=== PATIENT | male | born 1990 | race Caucasian/White ===

== ENCOUNTER 2017-11-03 17:21 | Inpatient (IN) | payer OTHER ==
[~2017-11-03] VITALS: Ht 185.4 cm; Wt 70.4 kg
[2017-11-03 18:47] LABS: ABSOLUTE BASOPHIL COUNT 0.1 /CUMM (0.0-0.2); ABSOLUTE EOSINOPHIL COUNT 0 /CUMM (0.0-0.7); ABSOLUTE GRANULOCYTE CT 7.8 /CUMM (1.4-6.5); ABSOLUTE LYMPH COUNT 1.8 /CUMM (1.2-3.4); ABSOLUTE MONOCYTE COUNT 0.8 /CUMM (0.10-0.60); BASOPHIL % 0.8 % (0.0-2.0); EOSINOPHIL % 0.3 % (0-5); GRANULOCYTE % 74.2 % (42.2-75.2); HEMATOCRIT 40.9 % (42-52); MEAN CORPUSCULAR HGB 32.8 PG (27.0-31.0); MEAN CORPUSCULAR HGB CONC 33.8 G/DL (33.0-37.0); MEAN CORPUSCULAR VOLUME 96.8 FL (80.0-94.0); MEAN PLATELET VOLUME 8.7 FL (7.4-10.4); PLATELET COUNT 151 /CUMM (130-400); RBC DISTRIBUTION WIDTH 13.4 % (11.5-14.5); RED BLOOD CELL CT 4.23 /CUMM (4.70-6.10); WHITE BLOOD CELL COUNT 10.5 /CUMM (4.8-10.8)
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
--- NOTE | 2017-11-03 20:09 | ED PSYCHIATRIC COMPLAINT ---
History of Present Illness General Chief Complaint: Psychiatric Related Complaint Stated Complaint: ON PEC, BIPOLAR, AGGRESSIVE,ERRADIC BEHAVIOR Source: patient Exam Limitations: no limitations Vital Signs & Intake/Output Vital Signs & Intake/Output Vital Signs Date Time Temp Pulse Resp B/P B/P Pulse O2 O2 Flow FiO2 Mean Ox Delivery Rate 11/03 2249 98.3 69 149/88 11/03 2102 97.5 100 16 130/83 99 11/03 1917 Room Air 11/03 1732 98.3 87 16 145/80 98 Room Air ED Intake and Output 11/04 0000 11/03 1200 Intake Total 200 Output Total Balance 200 Intake, Oral 200 Patient 155 lb Weight Allergies Coded Allergies: NO KNOWN ALLERGIES (08/17/12) Reconcile Medications No Known Home Medications Triage Note: BIBA FROM HOME ON PEC. PT WITH HISTORY OF BIPOLAR DISORDER. HAS NOT BEEN ON ANY MEDS FOR PAST TWO YEARS (UNCLEAR TO WHY). KNOWN TO [facility]. PARENTS CALLED CRISIS LINE TODAY DUE TO PT EXHIBITING DECLINE IN FUNCTIONING PAST WEEK WITH ERRADIC BEHAVIOR AND OUTBURSTS OF ANGER TOWARD FAMILY. PT DENIES SI OR HI. UPON ARRIVAL PT DOWNPLAYING SITUATION. CALM AND COOPERATIVE WITH ADMISSION PROCESS TO ED. Triage Nurses Notes Reviewed? yes Onset: Gradual Duration: week(s): Timing: no prior history Severity: moderate HPI: 27 yo gentleman, h/o bipolar, on police PEER presents after an argument with mother. "She is terrible at cleaning... she just sits there and judges me...." He denies SI/HI/hallucinations. He denies illicit drug use. He states that he is otherwise well. Past History Travel History Traveled to [place] past 21 day No Medical History Any Pertinent Medical History? 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 No Review of Systems Review of Systems Constitutional: Reports: no symptoms. EENTM: Reports: no symptoms. Respiratory: Reports: no symptoms. Cardiovascular: Reports: no symptoms. GI: Reports: no symptoms. Genitourinary: Reports: no symptoms. Musculoskeletal: Reports: no symptoms. Skin: Reports: no symptoms. Neurological/Psychological: Reports: no symptoms. Hematologic/Endocrine: Reports: no symptoms. Immunologic/Allergic: Reports: no symptoms. All Other Systems: Reviewed and Negative Physical Exam Physical Exam General Appearance: well developed/nourished, mild distress Head: atraumatic Eyes: Bilateral: PERRL, EOMI. Ears, Nose, Throat: normal pharynx, normal ENT inspection, hearing grossly normal Neck: normal inspection, supple Respiratory: normal breath sounds Cardiovascular: regular rate/rhythm Gastrointestinal: soft, non-tender Extremities: normal range of motion Neurological/Psychiatric: no motor/sensory deficits, anxious, flat, tangential speech with slight aggression Appearance/Memory/Insight: impaired insight Behavoir/Eye Contact/Speech: cooperative Thoughts/Hallucinations: no apparent hallucination Skin: intact, normal color, warm/dry SAD PERSONS Done? patient not suicidal Progress Differential Diagnosis: bipolar vs other. Plan of Care: Orders Procedure Date/time Status Regular Diet 11/04 B Active Vital Signs 11/04 2203 Active Inpt Psych Teach/Educate 11/04 2203 Active Nutritional Intake, Monitor 11/04 2203 Active Inpt Psych Auricular Acupunctu 11/04 2203 Active Admit to inpatient psych 11/03 2046 Active Intake & Output 11/03 1917 Complete Continuous Observation Monitor 11/03 191 Complete ED CRISIS PSYCH CONSULT 11/03 191 Active URINE DRUG SCREEN FOR ER ONLY 11/03 1826 Complete ETHANOL 11/03 182 Complete COMPREHENSIVE METABOLIC PANEL 11/03 182 Complete CBC WITHOUT DIFFERENTIAL 11/03 182 Complete Current Medications Sig/Dayanara Start time Last Medication Dose Stop Time Status Admin Nicotine 14 MG DAILY 11/04 0900 AC (Nicotine Cq) Acetaminophen 650 MG Q4P PRN 11/03 2222 AC (Tylenol) Nicotine 2 MG Q2P PRN 11/03 2222 AC (Nicotine) Quetiapine Fumarate 50 MG Q6P PRN 11/03 2222 AC (SEROquel) Laboratory Tests 11/03/17 1843: Urine Opiates Screen < 100, Methadone Screen < 40, Barbiturate Screen < 60, Ur Phencyclidine Scrn < 6.00, Amphetamines Screen < 100, U Benzodiazepines Scrn < 85, Urine Cocaine Screen < 50, Urine Cannabis Screen > 80.00 H 11/03/17 1833: Anion Gap 7, Estimated GFR > 60, BUN/Creatinine Ratio 25.0, Glucose 82, Calcium 9.2, Total Bilirubin 0.5, AST 67 H, ALT 49, Alkaline Phosphatase 42, Total Protein 6.2 L, Albumin 4.0, Globulin 2.2, Albumin/Globulin Ratio 1.8, CBC w Diff NO MAN DIFF REQ, RBC 4.23 L, MCV 96.8 H, MCH 32.8 H, MCHC 33.8, RDW 13.4 , MPV 8.7, Gran % 74.2, Lymphocytes % 17.1 L, Monocytes % 7.6, Eosinophils % 0.3, Basophils % 0.8, Absolute Granulocytes 7.8 H, Absolute Lymphocytes 1.8, Absolute Monocytes 0.8 H, Absolute Eosinophils 0, Absolute Basophils 0.1, Serum Alcohol < 10.0 Departure Departure Disposition: STILL A PATIENT Condition: Stable Clinical Impression Primary Impression: Bipolar disorder Referrals: Patient Has No Primary Care Dr (PCP/Family) Departure Forms: Customer Survey General Discharge Information Prescriptions: Current Visit Scripts No Known Home Medications Psych Admission Note Psychiatric Admission: I have seen and evaluated SCOTTVICKYRene Steward. I have also reviewed all the pertinent lab results and diagnostic results. SCOTTCAROLINE Bin will be admitted to our inpatient Psychiatric unit for treatment and care.
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
[2017-11-03 22:49] VITALS: BP 149/88
[2017-11-04 07:53] VITALS: BP 130/59
--- NOTE | 2017-11-04 09:27 | Cons- Medical ---
General Information and HPI Consulting Request Date of Consult: 11/04/17 Requested By: Jason Rhodes MD Reason for Consult: Medical H&P Source of Information: patient History of Present Illness: 27-year-old male no significant past medical history is here with psychotic symptoms and bipolar symptoms. Patient denies chest pain denies shortness of breath, fever, cough. He says he is in good health. He is an active smoker. Allergies/Medications Allergies: Coded Allergies: NO KNOWN ALLERGIES (08/17/12) Home Med List: No Known Home Medications Current Medications: Current Medications Sig/Dayanara Start time Last Medication Dose Route Stop Time Status Admin Acetaminophen 650 MG Q4P PRN 11/03 2223 AC PO Al Hydroxide/Mg 30 ML Q4-6 PRN PRN 11/04 1015 UNVr Hydroxide PO Benztropine Mesylate 1 MG Q6P PRN 11/04 1015 AC PO Benztropine Mesylate 1 MG Q6P PRN 11/04 1015 AC IM Haloperidol 5 MG Q6P PRN 11/04 1015 AC PO Haloperidol 5 MG Q6P PRN 11/04 1015 AC IM Lorazepam 2 MG Q6P PRN 11/04 1015 AC IM Magnesium Hydroxide 30 ML AT BEDTIME PRN 11/04 1015 UNVr PO Nicotine 14 MG DAILY 11/04 0900 AC TOP Nicotine 2 MG Q2P PRN 11/03 2223 AC 11/04 PO 1042 Quetiapine Fumarate 50 MG Q6P PRN 11/03 2223 AC PO Review of Systems Review of Systems Constitutional: Denies: no symptoms, chills, diaphoresis, fever. Cardiovascular: Denies: no symptoms, chest pain, edema, orthopena. Respiratory: Denies: no symptoms, cough, hemoptysis. GI: Denies: no symptoms, abdominal pain, bloating, constipation. Genitourinary: Denies: no symptoms, dysuria, frequency. 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 Home ETOH Use: denies use Illicit Drug Use: denies illicit drug use Other Social History: Pt says he was employed at [employer] and recently switched to another job. He is an active smoker and smokes every day. His only surgical history is treatment for broken jaw. He had a DUI in 2012 and has not had an alcoholic drink since then. His family history is positive for his mother having hypertension. Employment History Employment: Unemployed Profession/Employer: He was working at [employer] for 2years Exam & Diagnostic Data Last 24 Hrs of Vital Signs/I&O Vital Signs Date Time Temp Pulse Resp B/P B/P Pulse O2 O2 Flow FiO2 Mean Ox Delivery Rate 11/04 0753 97.3 53 130/59 11/03 2249 98.3 69 149/88 11/03 2102 97.5 100 16 130/83 99 11/03 1917 Room Air 11/03 1732 98.3 87 16 145/80 98 Room Air Intake & Output 11/04 1600 11/04 0800 11/04 0000 Intake Total 200 Output Total Balance 200 Intake, Oral 200 Patient 70.42 kg Weight Physical Exam General Appearance: well developed/nourished, no apparent distress, alert, awake Head: atraumatic, normal appearance Eyes: Bilateral: normal appearance, PERRL, EOMI. Ears, Nose, Throat: normal pharynx, normal ENT inspection, hearing grossly normal Neck: normal inspection, supple, full range of motion Respiratory: normal breath sounds, chest non-tender, no respiratory distress, quiet respiration Cardiovascular: regular rate/rhythm Gastrointestinal: normal bowel sounds, soft, non-tender, no organomegaly Back: normal inspection, normal range of motion Extremities: normal inspection, normal capillary refill, normal range of motion, no edema Neurologic/Psych: no motor/sensory deficits, awake, alert, oriented x 3, normal gait Other Physical Findings: She does alert and oriented 3, cranial nerves III through XII are intact, motor and sensory are intact. Reflexes are 2+ and symmetric. No cerebellar signs, gait is normal. Last 24 Hrs of Labs/Sinan: Laboratory Tests 11/03/17 1843: Urine Opiates Screen < 100, Methadone Screen < 40, Barbiturate Screen < 60, Ur Phencyclidine Scrn < 6.00, Amphetamines Screen < 100, U Benzodiazepines Scrn < 85, Urine Cocaine Screen < 50, Urine Cannabis Screen > 80.00 H 11/03/17 1833: Anion Gap 7, Estimated GFR > 60, BUN/Creatinine Ratio 25.0, Glucose 82, Calcium 9.2, Total Bilirubin 0.5, AST 67 H, ALT 49, Alkaline Phosphatase 42, Total Protein 6.2 L, Albumin 4.0, Globulin 2.2, Albumin/Globulin Ratio 1.8, CBC w Diff NO MAN DIFF REQ, RBC 4.23 L, MCV 96.8 H, MCH 32.8 H, MCHC 33.8, RDW 13.4 , MPV 8.7, Gran % 74.2, Lymphocytes % 17.1 L, Monocytes % 7.6, Eosinophils % 0.3, Basophils % 0.8, Absolute Granulocytes 7.8 H, Absolute Lymphocytes 1.8, Absolute Monocytes 0.8 H, Absolute Eosinophils 0, Absolute Basophils 0.1, Serum Alcohol < 10.0 Assessment/Plan Assessment/Plan 27-year-old male active smoker here with active bipolar disorder with manic symptoms. Treatment as per psychiatry. Patient has a history of elevated TSH in the past and will check that. Tobacco cessation counseling and follow closely. Problem List: 1. Bipolar disorder Consult Acknowledgment - Thank you for your consult request.
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
[2017-11-04 20:20] VITALS: BP 152/80
[2017-11-05 08:25] VITALS: BP 132/64
--- NOTE | 2017-11-05 12:00 | CP SOUTH PROGRESS NOTE PSYCH ---
Psych (Inpt) Progress Note Progress Note Progress Note: Willian is a 27 year old with hx of Bipolar Disorder and cannabis Abuse Disorder. He has multiple hospitalization. He was in [facility] care till last year when he stopped medication. Today, pt stated that he is OK and denied any issues. "It is my mother". He said that mother is depressed and any "extra movement is bipolar". He slept on off last night. He denied any sadness, hyperactivity. He denied any hallucination or paranoia. PER RN, Pt was up and down all night. He was given PRN with limited effect. Vital Signs Date Time Temp Pulse Resp B/P B/P Pulse O2 O2 Flow FiO2 Mean Ox Delivery Rate 11/05 824 96.0 64 132/64 11/05 2019 97.3 65 152/80 Current Medications Sig/Dayanara Start time Last Medication Dose Route Stop Time Status Admin Acetaminophen 650 MG Q4P PRN 11/03 2223 AC PO Al Hydroxide/Mg 30 ML Q4-6 PRN PRN 11/04 1015 AC Hydroxide PO Benztropine Mesylate 1 MG Q6P PRN 11/04 1015 AC PO Benztropine Mesylate 1 MG Q6P PRN 11/04 1015 AC IM Haloperidol 5 MG Q6P PRN 11/04 1015 AC PO Haloperidol 5 MG Q6P PRN 11/04 1015 AC IM Lorazepam 2 MG Q6P PRN 11/04 1015 AC IM Magnesium Hydroxide 30 ML AT BEDTIME PRN 11/04 1015 AC PO Nicotine 14 MG DAILY 11/04 0900 AC TOP Nicotine 2 MG Q2P PRN 11/03 2223 AC 11/05 PO 1113 Quetiapine Fumarate 50 MG Q6P PRN 11/03 2223 AC 11/05 PO 0019 MMSE: AO3. He was appropriate dressed. He is cooperative and enaged. His speech is somewhat fast but not pressured. He is tengential but easily redirect. Mood is "good" and affect is elated. His insight is poor. Judgement is fair. Assessment: Pt is refusing medication but willing to follow with out ptient services. He still does not sleep well at night. His speech is rapid and has tengential thought. He is mildly manic. Diagnosis: Bipolar disorder, currently manic. Cannabis abuse. Plan: - Pt is refusing medication.
[2017-11-05 19:53] VITALS: BP 135/70
[2017-11-06 07:38] VITALS: BP 115/58
--- NOTE | 2017-11-06 16:09 | SOCIAL WORKER PROG NOTE PSYCH ---
Social Work Progress Note Progress Note SWAPNIL Menon student and this senior writer met with the patient. He identified specific work stressors, particularly regarding interactions with a co-worker. He shared that this co-worker was a cousin of the patient's friend and assisted him in obtaining his employment with "[employer]." However, he stated that has since "quit" his job with that employer due to the interactions with his friend' s cousin. However, despite his lengthy description of his interaction with this previous co-worker while on the job, patient stated that he came to the hospital because "my mom was stressing me out." He shared that he and his father had changed their schedules in order to assist his mother in completing tasks such as laundry while she was sleeping. He shared that he had had a good day "playing with my puppy" during the morning prior to going to the ER, however felt that "I needed a break." Patient denied SI/HI/hallucinations. He stated that he smokes MJ "occassionally". Patient reported substance use in the family (specifically, his brother and sister). He stated that he had been involved in treatment at [facility] in [place] and would like to return. He was unsure of his clinician's name. He was also agreeable to a family meeting with his parents. Patient signed an RUI for his parents and [facility]. This senior writer spoke with patient's father, David Mckeon, who requested that he contacted this senior writer tomorrow morning to schedule the family meeting. He confirmed that he had this senior writer's phone number. 3:43pm This senior writer left a for Maria Elena at [facility] ([phone], ext. [phone]).
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
--- NOTE | 2017-11-06 18:31 | SOCIAL WORKER PROG NOTE PSYCH ---
Social Work Progress Note Progress Note Determination Status: PENDED The services requested require additional review. You will be contacted regarding the status of this request if further information is needed. An authorization decision will be made within the required timeframes and details of that decision may be found under the member's authorization history. Member Name Member ID Member Subscriber Name Subscriber ID CAROLINE CHAVEZ [id number] 1990 CAROLINE CHAVEZ [id number] Pended Authorization # Client Authorization # Type of Request [id number] CONCURRENT Date of Admission/ Start of Services Requested From Submission Date 11/03/2017 11/06/2017 11/06/2017 Level of Service Type of Service Level of Care Type of Care INPATIENT/[facility] Reason Code [id number] Provider Name & Address Provider ID Provider Alternate ID NPI # for Authorization RANGEL ZHAO [address] [place] [id number] N/A Message
[2017-11-06 19:59] VITALS: BP 132/60
--- NOTE | 2017-11-06 21:12 | RADIOLOGY REPORT ---
EXAMINATION: XR FOOT, LEFT CLINICAL INFORMATION: Trauma. Pain. COMPARISON: None TECHNIQUE: AP, lateral, and oblique views of the left foot. FINDINGS: The bones and soft tissues are normal. No fracture. Alignment is anatomic. Joint spaces are maintained. IMPRESSION: Normal left foot.
[2017-11-07 07:42] VITALS: BP 131/88
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
--- NOTE | 2017-11-07 17:16 | SOCIAL WORKER PROG NOTE PSYCH ---
Social Work Progress Note Progress Note Lauren Calderón (PA student) and this television writer met with patient. Patient discussed frustrations with staff. He described his mood as "stable", anxiety at a 0/10, anxiety at a 3-4/10 with 10 being the worst. He identified "lack of fresh air" as the trigger to his anxiety. Patient denied feeling hopeless, helpless, worthless, guilty. He denied SI/HI/hallucinations. Patient reported that he experienced SI about 3 years ago. Patient shared that a friend of his completed suicide when they were 15. Patient stated that he is not interested in taking medications. He is agreeable to a family meeting with his father and was informed that his father agreed to call today to schedule the meeting. This television writer responded to a vm from the patient's father, David Mckeon, at 4:24pm ([phone]) regarding the family meeting. A vm was left for his father with a call back number.
[2017-11-07 19:32] VITALS: BP 129/66
[2017-11-08 07:59] VITALS: BP 123/60
--- NOTE | 2017-11-08 09:27 | CP SOUTH PROGRESS NOTE PSYCH ---
Psych (Inpt) Progress Note Progress Note Include the following elements, when applicable: Involvement in the active treatment of the patient with behavioral observations of the patient and the patient's response to the treatment. Review of the ongoing treatment process in the context of the treatment plan. Indication of how multi-disciplinary staff members are carrying out the treatment plan. Plans for future interventions and recommendations for revision of the treatment plan. Liaison with other physicians/providers. Progress Note: SUBJECTIVE: Patient reports sleeping and eating well. Denies SI/HI/AVH/SIB. No abnormal movements reported. Patient states that he took Seroquel for sleep last night which was helpful but still remains quite opposed to any other medications. Patient states he had a difficult visit with his parents last night and does not want his mother involved in his care. Feels that his father is still a reasonable advocate. Patient is not interested in a family meeting and wishes that the team discussed discharge planning with his father only. Patient is looking forward to [facility] and feels that will be helpful. Patient was able to list multiple coping strategies including going for walks, doing his art , talking to friends. Patient did remain quite pressured, difficult to interrupt and became mildly tearful at the end of interview. Patient feels like he is going "stir crazy locked in a box." Patient is using nicotine gum for cravings and still has cravings for marijuana joint. Patient described a quite chaotic home environment. Patient denies any other physical complaints. OBJECTIVE: Per nursing, pt did well overnight without any acute events. Pt remained in behavioral control, adherent with staff instructions but refusing all medications except for nighttime Seroquel. Vital signs stable. Current Medications Sig/Dayanara Start time Last Medication Dose Route Stop Time Status Admin Acetaminophen 650 MG Q4P PRN 11/03 2223 AC PO Al Hydroxide/Mg 30 ML Q4-6 PRN PRN 11/04 1015 AC Hydroxide PO Benztropine Mesylate 1 MG Q6P PRN 11/04 1015 AC PO Benztropine Mesylate 1 MG Q6P PRN 11/04 1015 AC IM Haloperidol 5 MG Q6P PRN 11/04 1015 AC PO Haloperidol 5 MG Q6P PRN 11/04 1015 AC IM Lorazepam 2 MG Q6P PRN 11/04 1015 AC IM Magnesium Hydroxide 30 ML AT BEDTIME PRN 09/15 1015 AC PO Nicotine 14 MG DAILY 11/04 09 AC TOP Nicotine 2 MG Q2P PRN 11/03 2222 AC 11/08 PO 0612 Quetiapine Fumarate 50 MG Q6P PRN 11/03 2222 AC 11/07 PO 2315 Vital Signs Date Time Temp Pulse Resp B/P B/P Pulse O2 O2 Flow FiO2 Mean Ox Delivery Rate 11/08 0759 96.5 72 123/60 11/07 193 97.7 73 129/66 MSE: GENERAL: Alert and oriented x3, good eye contact, well-groomed with mismatched socks, polite, no apparent distress SPEECH: Fast rate rate, moderate volume, normal prosody, fluent MOTOR: Appeared restless, no apparent tremor, tics or stereotypy. Got up and walked around interview room during interview MOOD: "Stir crazy" AFFECT: Restless, jumpy, mood congruent, good range, non-labile, well related THOUGHT PROCESS: Tangential THOUGHT CONTENT: No SI/HI/AVH/SIB, no apparent grandiosity, paranoia, delusions , however quite fixated on relationship with mother COGNITION: No apparent deficit in attention, memory or concentration JUDGMENT: Fair INSIGHT: Fair IMAGING: PATIENT: CAROLINE CHAVEZ PRESENT AGE: 27 PATIENT ACCOUNT NO: [id number] : 89 LOCATION: [facility] ORDERING PHYSICIAN: Jason Rhodes MD SERVICE DATE: 11/06/17- EXAM TYPE: RAD - XRY-FOOT COMPLETE, LEFT EXAMINATION: XR FOOT, LEFT CLINICAL INFORMATION: Trauma. Pain. COMPARISON: None TECHNIQUE: AP, lateral, and oblique views of the left foot. FINDINGS: The bones and soft tissues are normal. No fracture. Alignment is anatomic. Joint spaces are maintained. IMPRESSION: Normal left foot. DICTATED BY: Kal See MD DATE/TIME DICTATED:11/06/172107 PROCESS ENGINEERING MANAGER:WALKER DATE/TIME TRANSCRIBED:11/06/172107 CONFIDENTIAL, DO NOT COPY WITHOUT APPROPRIATE AUTHORIZATION. <Electronically signed in Other Vendor System> SIGNED BY: Kal See MD 11/06/172111 ASSESSMENT: 27 yo M with bipolar disorder, MRE manic and cannabis use disorder , currently refusing medications other than nighttime Seroquel. Patient receives is reporting very conflictual relationship with mother and no longer wants are involved in his care. Patient open to staff communication with father or family meeting with father only. Parents are concerned that pt is not improved. Patient's mood appears to still be quite elevated but he is maintaining behavioral control. Patient in agreement with IOP at discharge. Foot x-ray negative. PLAN: -q15 min checks, vs as ordered, maintain safety -cont to offer meds above, document refusals -Psychoeducation provided -SW attempting to coordinate family meeting, possible dc Thurs with IOP referral
--- NOTE | 2017-11-08 14:02 | SOCIAL WORKER PROG NOTE PSYCH ---
Social Work Progress Note Progress Note This technical publications writer contacted the patient's father, David Mckeon, ([phone]) to schedule a family meeting. Mr. Mckeon shared that he did not feel that the patient is ready for discharge tomorrow as he is "still sped up. Talking crazy thoughts about a million different things." Patient's father stated that he did not feel that the patient's symptoms had improved since admission. Mr. Mckeon was unavailable to schedule a meeting at this time and will call this technical publications writer later this afternoon. He was informed that the patient's psychiatrist, Dr. Rhodes, is not in today, will be returning tomorrow and that the patient is being following by Dr. Thompson (in Dr. Rhodes's absence). This technical publications writer met with patient. He described his mood as "fine. I'm just stir crazy." He identified being on the unit with many people as a trigger for his anxiety. Patient identified the following coping skills that he has been using: "take a shower, walk away, go to groups and do art." He also identified staff as supportive. Patient stated that he would like to go to IOP after discharge. Patient shared last night's visit with his parents. He stated that he was agitated because his parents were later than expected, which he attributed to his mother frequently being late. He stated that he would agree to a family meeting with his father, but not his mother. He is agreeable to attending an IOP after discharge. This technical publications writer received a call from the patient's father. He was informed that the patient does not want to have a family meeting with his mother. Patient's father stated that the patient transitions back and forth between parents identifying a good maddie/bad maddie. "Today I'm the good maddie." Patient's father is unavailable for a family meeting today as he will be going to work. He had multiple questions about medications. As discussed with Dr. Thompson, this technical publications writer will attempt to identify a time that for the patient's father to meet with Dr. Rhodes and call Mr. Mckeon back this afternoon. He was agreeable to this plan. This technical publications writer also spoke with Maria Elena at [facility] ([phone], ext. [phone]). She stated that the patient had been a client with [facility] in the past, but has not recently been in treatment at their clinic. Maria Elena stated that the patient's father, David Mckeon, had called with concerns that the patient would be discharged from tomorrow. This technical publications writer left a vm for the patient's father at 3:15pm informing that the mental health social worker who will be covering for this mental health social worker has been asked to contact him to schedule a family meeting.
[2017-11-08 19:52] VITALS: BP 155/71
[2017-11-09 07:37] VITALS: BP 112/81
--- NOTE | 2017-11-09 10:33 | SOCIAL WORKER PROG NOTE PSYCH ---
Social Work Progress Note Progress Note Pt states he is agreeable to medication and taking it regularly, for now on the unit. He is agreeable to family meeting tomorrow at 1pm, with his parents. Pt continues to be hyperverbal, grandiose but calm and cooperative. He was tearful, during our conversation and perseverative especially around his family of origin , and his siblings drug and alcohol problems. Pt will need a IOP intake appt. 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
--- NOTE | 2017-11-09 16:41 | CP SOUTH PROGRESS NOTE PSYCH ---
Psych (Inpt) Progress Note Progress Note Include the following elements, when applicable: Involvement in the active treatment of the patient with behavioral observations of the patient and the patient's response to the treatment. Review of the ongoing treatment process in the context of the treatment plan. Indication of how multi-disciplinary staff members are carrying out the treatment plan. Plans for future interventions and recommendations for revision of the treatment plan. Liaison with other physicians/providers. Progress Note: Dr. Thompson's note reviewed. Case and treatment plan discussed in team meeting. Staff reports that the patient had an outburst this morning. Requested more Seroquel. He apparently wanted the lyrics to a song and when staff looked it up and found that the lyrics were inappropriate and that the printout would not be given to him, he cried. restaurant worker, Megan, and I had a brief phone call with father. Father would like to see the patient on regular medication before he considers patient's return home. Patient seen at 1:22 pm with social services specialistMegan. Patient's behavior is calm and in control. He denies having an active cannabis problem. Mood is fine. Rates sad mood about 3/10 and anxiety 2/10. Denies feeling hopeless, helpless, worthless or guilty. Denies active and passive suicidal ideation. Denies homicidal ideation. Denies auditory and visual hallucinations and paranoid ideation. Reports he slept fine last night. Appetite is great. Energy is normal. I explained to the patient that his parents expect him to be stabilized on medication before he can return home. Patient reports he took Seroquel this morning because he was really stressed and he found it helpful. He agrees to standing Seroquel 50 mg twice daily. Major risks and benefits of this medication were discussed with the patient, including risks of metabolic syndrome (with weight gain, diabetes, hypertension and hyperlipidemia) and also risk of irreversible tardive dyskinesia. Patient was advised to avoid alcohol on this medication and also to stop using cannabis. IMPRESSION: Slow progress. Continue present treatment plan. Patient is now agreeing to standing Seroquel 50 mg twice daily. Monitor response to standing Seroquel. Family meeting is scheduled with parents for tomorrow at 1 PM. Patient continues to require inpatient level of care.
[2017-11-09 20:22] VITALS: BP 155/86
[2017-11-10 07:42] VITALS: BP 116/75
--- NOTE | 2017-11-10 10:48 | SOCIAL WORKER PROG NOTE PSYCH ---
Social Work Progress Note Progress Note Dr. Rhodes and I met with Willian discussed his progress and discharge planning. He denied SI/HI, no AH/VH. HIs mood is stable. He is future oriented - wants to find a job. He is eager to go home. Meting with his parents today at 1pm. He agreed to visiting nurse for medication administration - and to make sure he is compliant with medication, deescalate conflicts regarding meds at home. Willian agreed to IOP and Visiting nurse referral [facility]. 1pm - Dr. Rhodes and Grace, as well as Rimma Saenz PA student met with Willian and both is parents today to discuss progress and discharge planning. Dr. Rhodes reviewed his medications and readiness to discharge to home. His parents expressed concern about Willian resuming smoking Cannibis, Willian reassured them that he wouldn't do that. Also, discussed how he needs to stay on his medications and engage in IOP. Referrals discussed - IOP intake on 11/13 at 11:30am, and [facility] referral - intake on 11/11/17 in the morning - RN or Aliya will call patient with exact time. Willian seemed irritable with his parents - especially with his Father. His Father wanted to discuss "house ruled." They expressed how they want Willian to stay on medications, remain clean off drugs, get a job, and complete IOP. Willian wanted to focus on his younger brother's issues with drugs, redirected Willian to focus on his issues at this time. Recommended AA/NA for Willian as well as [facility] due to his report that his parents drink alot, and his brother. Willian's mood is stable, no SI/HI, no AH/VH.
[2017-11-10] MEDS ORDERED: SEROQUEL50 M1 PO (13:18)
[2017-11-10] MEDS ORDERED: NICORELIEF2 MG PO (13:18)
--- NOTE | 2017-11-10 13:23 | Patient Discharge Instructions ---
Psych Discharge Inst General Discharge Information Reason for Admission: Agitation and impulsivity. Psy Discharge Primary Diag+ Bipolar d/o, manic Psy Discharge Secondary Diag+ Cannabis use disorder Summary Tests/Major Procedures Lab Sodium 138 mmol/L 11/03/17 1833 ALT 49 U/L 11/03/17 1833 AST 67 U/L H 11/03/17 1833 BUN 20 mg/dL 11/03/17 1833 Carbon Dioxide 27 mmol/L 11/03/17 1833 Chloride 104 mmol/L 11/03/17 1833 Cholesterol 84 MG/DL 11/03/17 1833 Cholesterol/HDL Ratio 2 % 11/03/17 1833 Creatinine 0.8 mg/dL 11/03/17 1833 Estimated GFR > 60 ml/min 11/03/17 1833 Glucose 82 mg/dL 11/03/17 1833 HDL Cholesterol 46 mg/dL 11/03/17 1833 Hemoglobin A1c 5.2 % 11/03/17 1833 LDL Cholesterol, Calc 25 mg/dL L 11/03/17 1833 Potassium 3.9 mmol/L 11/03/17 1833 Sodium 138 mmol/L 11/03/17 1833 TSH &T3 &Free T4 Intrp 2.310 uIU/mL 11/03/17 1833 Total Protein 6.2 g/dL L 11/03/17 1833 Triglycerides 66 mg/dL 11/03/17 1833 Absolute Granulocytes 7.8 /CUMM H 11/03/17 1833 Absolute Monocytes 0.8 /CUMM H 11/03/17 1833 Hct 40.9 % L 11/03/17 1833 Hgb 13.9 G/DL L 11/03/17 1833 Lymphocytes % 17.1 % L 11/03/17 1833 MCH 32.8 PG H 11/03/17 1833 MCV 96.8 FL H 11/03/17 1833 RBC 4.23 /CUMM L 11/03/17 1833 WBC 10.5 /CUMM 11/03/17 1833 Serum Alcohol < 10.0 MG/DL 11/03/17 1833 Urine Cannabis Screen > 80.00 NG/ML H 11/03/17 1843 SERVICE DATE: 11/06/17- EXAM TYPE: RAD - XRY-FOOT COMPLETE, LEFT EXAMINATION: XR FOOT, LEFT CLINICAL INFORMATION: Trauma. Pain. COMPARISON: None TECHNIQUE: AP, lateral, and oblique views of the left foot. FINDINGS: The bones and soft tissues are normal. No fracture. Alignment is anatomic. Joint spaces are maintained. IMPRESSION: Normal left foot. Studies Pending at DC: None. Patient Instructions Contact Information Your Psychiatrist on [facility] was Jason Rhodes MD * If you are experiencing an emergency related to this hospitalization, please call [phone] to contact the treating psychiatrist or the psychiatrist-on- call. * To Request a copy of your medical records, please contact the Medical Records Department at [phone]. * To request results of studies pending at the time of discharge, please call [phone]. * Continue your Medications until directed to stop by your Healthcare provider. General Medication Information Please continue to take your new medications and your continued home medications , unless otherwise indicated on your discharge medication list, or unless directed by your MD or PLATING TANK OPERATOR APPRENTICE to stop them. Special Instructions Diet Regular Activity Normal Other Inst/Recommendations Stay away from drugs&alcohol. See PCP about abnormal labs. - Tobacco Use Treatment Offered Post DC Medications Offered: Script Given-See Med List Post DC Tobacco Treatment Plan: [facility] Program Appt Date: 11/22/17 Program Appt Time: 1600 - EtOH/Drug Use D/O Treatment Offered Post DC Medications Offered: Med Not Indicated for D/O Post DC EtOH/SubAbuse [place] Plan: [facility] SubAbuse/Dual IOP Program Appt Date: 11/13/17 Program Appt Time: 1030 Metabolic Screening () Not Applicable, patient not on a neuroleptic. OR () Patient on a neuroleptic(s) . Enter below results for Hemoglobin A1C, and lipid panel if obtained during the last 365 days. BMI: 20.400 Blood Pressure: 116/75 Laboratory Results From [facility] (If applicable): [x] Lab Cholesterol 84 MG/DL 11/03/17 1833 Cholesterol/HDL Ratio 2 % 11/03/17 1833 HDL Cholesterol 46 mg/dL 11/03/17 1833 Hemoglobin A1c 5.2 % 11/03/17 1833 LDL Cholesterol, Calc 25 mg/dL L 11/03/17 1833 Advance Directives Does the Patient have Medical Advance Directives No/Refused further info Does Pt have Psychiatric Advance Directives? No/Refused further info Does Patient have a Designated Surrogate Decision Maker: No Information About Psychiatric Advance Directives Provided? Refused Discharge Plan Post Hospital Treatment Plan: [facility]
--- NOTE | 2017-11-10 14:45 | CP SOUTH PROGRESS NOTE PSYCH ---
Psych (Inpt) Progress Note Progress Note Include the following elements, when applicable: Involvement in the active treatment of the patient with behavioral observations of the patient and the patient's response to the treatment. Review of the ongoing treatment process in the context of the treatment plan. Indication of how multi-disciplinary staff members are carrying out the treatment plan. Plans for future interventions and recommendations for revision of the treatment plan. Liaison with other physicians/providers. Progress Note: Case and treatment plan discussed in team meeting. Staff reports that the patient is denying suicidal ideation. Reportedly taunted a male peer to take a shower. Patient seen at 10:20 AM with SWAPNIL hinton. Patient was in group prior to meeting with us. Feels good. Reports he slept well last night. Affect is calm and euthymic. He is in good spirits. Mood is good. Rates sad mood 0/10. Rates anxiety 2/10 because his foot still hurts a little bit. Does not want to use PRN Tylenol. Denies feeling hopeless, helpless, worthless or guilty. Denies active and passive suicidal ideation. Denies homicidal ideation. Denies auditory and visual hallucinations and paranoid ideation. Appetite is great. Energy is good/normal he guesses. Tolerating Seroquel well, without complaint. Feels ready and safe for discharge. I attended family meeting with patient, mother, father, director social welfare, María, and with SWAPNIL hinton. Patient's and parents' questions were addressed. IMPRESSION: Condition improved. Okay for discharge today to home with IOP intake on Monday.
--- NOTE | 2017-11-10 14:51 | DISCHARGE SUMMARY REPORT-PSYCH ---
Visit Information Visit Dates/Diagnosis' Admission Date: 11/03/17 Discharge Date: 11/10/17 Reason for Admission: Agitation and impulsivity. Psy Discharge Primary Diag: Bipolar d/o, manic Psy Discharge Secondary Diag: Cannabis use disorder Hospital Course Significant Lab Findings: Lab Sodium 138 mmol/L 11/03/17 1833 ALT 49 U/L 11/03/17 1833 AST 67 U/L H 11/03/17 1833 BUN 20 mg/dL 11/03/17 1833 Carbon Dioxide 27 mmol/L 11/03/17 1833 Chloride 104 mmol/L 11/03/17 1833 Cholesterol 84 MG/DL 11/03/17 1833 Cholesterol/HDL Ratio 2 % 11/03/17 1833 Creatinine 0.8 mg/dL 11/03/17 1833 Estimated GFR > 60 ml/min 11/03/17 1833 Glucose 82 mg/dL 11/03/17 1833 HDL Cholesterol 46 mg/dL 11/03/17 1833 Hemoglobin A1c 5.2 % 11/03/17 1833 LDL Cholesterol, Calc 25 mg/dL L 11/03/17 1833 Potassium 3.9 mmol/L 11/03/17 1833 Sodium 138 mmol/L 11/03/17 1833 TSH &T3 &Free T4 Intrp 2.310 uIU/mL 11/03/17 1833 Total Protein 6.2 g/dL L 11/03/17 1833 Triglycerides 66 mg/dL 11/03/17 1833 Absolute Granulocytes 7.8 /CUMM H 11/03/17 1833 Absolute Monocytes 0.8 /CUMM H 11/03/17 1833 Hct 40.9 % L 11/03/17 1833 Hgb 13.9 G/DL L 11/03/17 1833 Lymphocytes % 17.1 % L 11/03/17 1833 MCH 32.8 PG H 11/03/17 1833 MCV 96.8 FL H 11/03/17 1833 RBC 4.23 /CUMM L 11/03/17 1833 WBC 10.5 /CUMM 11/03/17 1833 Serum Alcohol < 10.0 MG/DL 11/03/17 1833 Urine Cannabis Screen > 80.00 NG/ML H 11/03/17 1843 SERVICE DATE: 11/06/17- EXAM TYPE: RAD - XRY-FOOT COMPLETE, LEFT EXAMINATION: XR FOOT, LEFT CLINICAL INFORMATION: Trauma. Pain. COMPARISON: None TECHNIQUE: AP, lateral, and oblique views of the left foot. FINDINGS: The bones and soft tissues are normal. No fracture. Alignment is anatomic. Joint spaces are maintained. IMPRESSION: Normal left foot. Course Complications: None. Consultations: Patient was seen by Dr. Charles for admission H&P. Per her note of 11/04/17, "27-year-old male active smoker here with active bipolar disorder with manic symptoms. Treatment as per psychiatry. Patient has a history of elevated TSH in the past and will check that. Tobacco cessation counseling and follow closely." Allergies: Coded Allergies: NO KNOWN ALLERGIES (08/17/12) Hospital Course/TX Response: The patient was monitored on the unit for safety, behavioral disturbance and mood disturbance. He participated in multimodal treatments on the unit. The patient had mild mood lability. He initially refused psychiatric medication , then agreed to prn Seroquel, then agreed to standing Seroquel 50 mg twice daily. Mood and affect have improved. There has been no suicidal ideation. Patient had a successful family meeting on date of discharge. Progress note from date of discharge, 11/10/17: "Case and treatment plan discussed in team meeting. Staff reports that the patient is denying suicidal ideation. Reportedly taunted a male peer to take a shower. Patient seen at 10:20 AM with PA student. Patient was in group prior to meeting with us. Feels good. Reports he slept well last night. Affect is calm and euthymic. He is in good spirits. Mood is good. Rates sad mood 0/10. Rates anxiety 2/10 because his foot still hurts a little bit. Does not want to use PRN Tylenol. Denies feeling hopeless, helpless, worthless or guilty. Denies active and passive suicidal ideation. Denies homicidal ideation. Denies auditory and visual hallucinations and paranoid ideation. Appetite is great. Energy is good/normal he guesses. Tolerating Seroquel well, without complaint. Feels ready and safe for discharge. I attended family meeting with patient, mother, father, criminal justice social worker, María, and with PA student. Patient's and parents' questions were addressed. IMPRESSION: Condition improved. Okay for discharge today to home with IOP intake on Fernando. " Discharge HBIPS - Tobacco Use Treatment Offered Post DC Medications Offered: Script Given-See Med List Post DC Tobacco Treatment Plan: [facility] Program Appt Date: 11/22/17 Program Appt Time: 1600 - EtOH/Drug Use D/O Treatment Offered Post DC Medications Offered: Med Not Indicated for D/O Post DC EtOH/SubAbuse TX Plan: [facility] SubAbuse/Dual IOP Program Appt Date: 11/13/17 Program Appt Time: 1030 Metabolic Screening - Screen if on a Neuroleptic Medication - Metabolic screening should include: - Blood Pressure, BMI, Glucose or Hgb A1c, & a - Lipid profile from within the past 365 days. Metabolic Screening () Not Applicable, patient not on a neuroleptic. OR () Patient on a neuroleptic(s) . Enter below results for Hemoglobin A1C, and lipid panel if obtained during the last 365 days. BMI: 20.400 Blood Pressure: 116/75 Laboratory Results From [facility] E[facility] (If applicable): [x] Lab Cholesterol 84 MG/DL 11/03/17 1833 Cholesterol/HDL Ratio 2 % 11/03/17 1833 HDL Cholesterol 46 mg/dL 11/03/17 1833 Hemoglobin A1c 5.2 % 11/03/17 1833 LDL Cholesterol, Calc 25 mg/dL L 11/03/17 1833 Triglycerides 66 mg/dL 11/03/17 1833 Discharge Instructions General Discharge Information Multiple Neuroleptics: ([x]) Not Applicable OR Document below three failed attempts at monotherapy, or a plan to taper to monotherapy, or augmentation of Clozapine. () Discharge Diet Regular Discharge Activity Normal DC Disposition: Returning to home and family. Referrals Ordered Referrals Provider Referral 10/30/17 For Groups: [ IOP] [facility] [address] [place], [place] Intake 11/13/17 at 10:30am Provider Referral 11/10/17 For Groups: [[facility]] [address], [address] Daily medication admin - start 11/11/17 in AM. Aliya photographic machine operator will call to inform of time of intake. Prescriptions Start taking the following new medications: Nicotine (Nicorelief) 2 MG GUM 1 Gum ORAL EVERY 2 HOURS NEEDED as needed for NICOTINE WITHDRAWAL Qty = 100 No Refills Comments: Last Taken:11/10/17 Time:1000 Quetiapine Fumarate (Seroquel) 50 MG TABLET 1 Tablet ORAL TWICE DAILY Qty = 28 No Refills Comments: Last Taken:11/10/17 Time:1000 Other Inst/Recommendations Stay away from drugs&alcohol. See PCP about abnormal labs. Studies Pending at Discharge None. Copies To: Intensive Outpt Psy-Substance
--- NOTE | 2017-11-10 15:25 | SOCIAL WORKER PROG NOTE PSYCH ---
Social Work Progress Note Faxed Referral(s) Referred To: [facility] Transition of Care Documents sent: Transfer summary Faxed to: [facility] Fax #: [phone] Faxed by: María Shen lCSW Date faxed: 11/10/17 Time Faxed: [phone]
--- NOTE | 2017-11-10 15:33 | SOCIAL WORKER PROG NOTE PSYCH ---
Social Work Progress Note Faxed Referral(s) Referred To: [facility] Transition of Care Documents sent: Health Summary, W10 Faxed to: [facility] Fax #: [phone] Faxed by: María Shen LCSW Date faxed: 11/10/17 Time Faxed: [phone]
--- NOTE | 2017-11-10 16:04 | SOCIAL WORKER PROG NOTE PSYCH ---
Tae Kruger 11/10/17 1603: Social Work Progress Note Progress Note Psychiatric CHW Note Determination Status: DISCHARGE COMPLETED Thank you. You have completed your discharge for this episode of care. Member Name Member ID Member Subscriber Name Subscriber ID CAROLINE MONDRAGONN [id number] 1990 CAROLINE CHAVEZ [id number] Related Authorization # Related Client Authorization # Discharge # Discharge Date [id number] 11/10/2017 Level of Service Type of Service Level Of Care Type of Care IP - INPATIENT/HLOC P - MENTAL HEALTH I - INPATIENT CIP - INPATIENT HOSPITAL - INPATIENT HOSPITAL Provider Name & Address Provider ID Provider Alternate ID TAE KRUGER [id number] [address] [place] [address] [phone]
--- NOTE | 2017-11-13 15:06 | SOCIAL WORKER PROG NOTE PSYCH ---
Social Work Progress Note Faxed Referral(s) Referred To: [facility] Transition of Care Documents sent: Health Summary, W10 Faxed to: [facility] Fax #: [phone] Faxed by: María Shen LCSW Date faxed: 11/11/17 Time Faxed: [phone]
== END 2017-11-10 14:30 | DRG 753 ==
LOC: ERH 17:21 → ERHI 20:47 → CP SOUTH 20:47 → ENTRNSPT 21:42 → CMPTRNSPT 21:56 → CP SOUTH 22:02 → ENRESERV 23:59 → CP SOUTH 11-07 10:05
PROVIDERS: Emergency Medicine
DX: F30.9 Manic episode, unspecified (principal); F12.90 Cannabis use, unspecified, uncomplicated
CPT/HCPCS: 73630-LT; 80307; G0480; J0515; J1630